=== PATIENT | female | born 1990 | race Caucasian/White ===

== ENCOUNTER 2017-04-11 10:09 | Inpatient (IN) | payer MEDICAID ==
[~2017-04-11] VITALS: Ht 162.6 cm; Wt 66.6 kg
[~2017-04-11 10:09] MED LIST: FERR325C PO; PNV1TABL91 PO
[2017-04-11] MEDS ORDERED: FOLI-49 PO (10:16)
[2017-04-11] MEDS ORDERED: CALC600T11 PO (10:16)
[2017-04-11 10:17] VITALS: BP 111/69; RESP 18; Ht 162.6 cm; Wt 66.6 kg
[2017-04-11] MEDS ORDERED: LACTATED RINGER'S 1,000 ML IV PRN (10:34)
[2017-04-11] MEDS ORDERED: LACTATED RINGER'S 1,000 ML IV SCH (10:34)
[2017-04-11] MEDS ORDERED: CARBOPROST 250 MCG INJ IM PRN (11:00)
[2017-04-11] MEDS ORDERED: IBUPROFEN 600 MG TAB PO PRN (11:00)
[2017-04-11] MEDS ORDERED: BUTORPHANOL 2 MG INJ IV PRN (11:00)
[2017-04-11] MEDS ORDERED: MISOPROSTOL 200 MCG TAB PR PRN (11:00)
[2017-04-11] MEDS ORDERED: OXYTOCIN 30 UNITS/LR 500 ML IV PRN (11:00)
[2017-04-11] MEDS ORDERED: LIDOCAINE 1% (MPF) 30 ML INJ INJ PRN (11:00)
[2017-04-11] MEDS ORDERED: METHYLERGONOVINE 0.2 MG INJ IM PRN (11:00)
[2017-04-11] MEDS ORDERED: OXYTOCIN 30 UNITS/LR 500 ML IV SCH ×2 (11:00→14:51)
[2017-04-11 11:12] LABS: ADD SCAN DIFF NO
[2017-04-11 11:15] LABS: BASOPHILS % 0.2 % (0.0-2.0); EOSINOPHILS # 0.2 10^3/ul (0.0-0.5); EOSINOPHILS % 1.5 % (0.0-7.0); HEMATOCRIT 39.2 % (37.0-47.0); HEMOGLOBIN 13.3 g/dl (12.0-16.0); LYMPHOCYTES # 1.9 10^3/ul (0.8-2.9); LYMPHOCYTES % 18.9 % (15.0-51.0); MEAN CORPUSCULAR HEMOGLOBIN 31.8 pg (29.0-33.0); MEAN CORPUSCULAR HGB CONC 33.9 g/dl (32.0-37.0); MEAN CORPUSCULAR VOLUME 93.8 fl (82.0-101.0); MONOCYTE # 0.8 10^3/ul (0.3-0.9); MONOCYTES % 8.2 % (0.0-11.0); NEUTROPHIL # 7.2 10^3/ul (1.6-7.5); NEUTROPHILS % 70.6 % (39.0-77.0); PLATELET COUNT 248 10^3/UL (140-415); RED BLOOD COUNT 4.18 10^6/ul (4.20-5.40); RED CELL DISTRIBUTION WIDTH 14.9 % (11.5-14.5); WHITE BLOOD COUNT 10.2 10^3/ul (4.8-10.8)
[2017-04-11 11:40] LABS: INR 0.92; PROTIME 12.4 Sec (12.2-14.2)
[2017-04-11 11:41] LABS: PARTIAL THROMBOPLASTIN TIME 25.3 Sec (25.0-35.0)
--- NOTE | 2017-04-11 13:23 | LDN ---
Date/Time of Note Date/Time of Note DATE: 04/11/17 TIME: 13:18 Delivery Summary Normal spontaneous vaginal delivery of a baby boy from op position shoulders delivered without any difficulty rest of the baby's body followed cord clamped after stopped pulsation placenta spontaneous expulsion inspected complete patient sustained small first-degree perineal laceration repaired with 3-0 chromic catgut estimated blood loss 300 cc Weeks of Gestation 37 weeks 2 days Placenta Delivered: Spontaneously Meconium: none Episiotomy: No Perineal laceration: 1 Laceration repair: First-degree perineal laceration repaired with 3-0 chromic catgut Anesthesia type: Local Sponge & Needle done & correct: Yes All needle counts correct: Yes Any foreign bodies felt in the: No Problems: Infant Delivery Information Sex Infant Sex: male Apgars 1 Minute: 9 5 Minute: 9 Suctioning Nose & mouth suctioned at duong: Yes Delee suction performed: No Umbilical Cord Umbilical cord with: 3 Vessels Cord presentations: nuchal cord Cord Blood was obtained: Yes CATRACHITO SOLORZANO MD Apr 11, 2017 13:23
[2017-04-11] MEDS: OXYTOCIN 30 UNITS/LR 500 ML IV SCH ×4 (14:01→18:51)
[2017-04-11 15:00] VITALS: BP 106/59; PULSE 86; RESP 18
[2017-04-11] MEDS ORDERED: OXYCODONE/ASPIRIN (4.88/325) TAB PO PRN ×4 (15:00)
[2017-04-11] MEDS ORDERED: DIBUCAINE 1% 30 GM OINT PR PRN ×2 (15:00)
[2017-04-11] MEDS ORDERED: LANOLIN 7 GM TUBE TOP PRN ×2 (15:00)
[2017-04-11] MEDS ORDERED: WITCH HAZEL/GLYCERIN PAD PR PRN ×2 (15:00)
[2017-04-11] MEDS ORDERED: ONDANSETRON 4 MG INJ IV PRN ×2 (15:00)
[2017-04-11] MEDS ORDERED: BENZOCAINE 20% 56 ML SPRAY TOP PRN ×2 (15:00)
[2017-04-11] MEDS ORDERED: ACETAMINOPHEN 325 MG TAB PO PRN ×2 (15:00)
[2017-04-11] MEDS ORDERED: ACETAMINOPHEN/CODEINE #3 TAB PO PRN ×4 (15:00)
[2017-04-11] MEDS: IBUPROFEN 600 MG TAB PO SCH ×2 (17:48→23:42)
[2017-04-11] MEDS ORDERED: IBUPROFEN 600 MG TAB PO SCH (18:00)
[2017-04-11 19:45] VITALS: BP 99/54; PULSE 66; RESP 18
[2017-04-11] MEDS: SENNA/DOCUSATE NA (8.6MG/50MG) TAB PO SCH (20:48)
[2017-04-11] MEDS ORDERED: SENNA/DOCUSATE NA (8.6MG/50MG) TAB PO SCH (21:00)
[2017-04-12 00:22] VITALS: BP 95/52; PULSE 65; RESP 18
[2017-04-12 04:00] VITALS: BP 90/64; PULSE 76; RESP 18
[2017-04-12] MEDS: IBUPROFEN 600 MG TAB PO SCH ×4 (05:32→23:46)
[2017-04-12 07:30] VITALS: BP 96/51; PULSE 74; RESP 16
[2017-04-12 07:45] LABS: ADD SCAN DIFF NO
[2017-04-12 07:52] LABS: BASOPHILS % 0.2 % (0.0-2.0); EOSINOPHILS # 0.2 10^3/ul (0.0-0.5); EOSINOPHILS % 1.2 % (0.0-7.0); HEMATOCRIT 31.2 % (37.0-47.0); HEMOGLOBIN 10.3 g/dl (12.0-16.0); LYMPHOCYTES # 2.6 10^3/ul (0.8-2.9); LYMPHOCYTES % 19.9 % (15.0-51.0); MEAN CORPUSCULAR HEMOGLOBIN 31.3 pg (29.0-33.0); MEAN CORPUSCULAR VOLUME 94.8 fl (82.0-101.0); MEAN PLATELET VOLUME 10.2 fl (7.4-10.4); MONOCYTES % 7.9 % (0.0-11.0); NEUTROPHILS % 70.2 % (39.0-77.0); PLATELET COUNT 208 10^3/UL (140-415); RED BLOOD COUNT 3.29 10^6/ul (4.20-5.40); WHITE BLOOD COUNT 12.8 10^3/ul (4.8-10.8)
[2017-04-12] MEDS: SENNA/DOCUSATE NA (8.6MG/50MG) TAB PO SCH ×2 (08:28→21:16)
--- NOTE | 2017-04-12 12:19 | PN ---
Date/Time of Note Date/Time of Note DATE: 04/12/17 TIME: 12:18 OB Subjective Subjective Subjective Post normal vaginal delivery day 1 Afebrile vital signs stable abdomen soft uterus firm lochia normal extremity ambulation encouraged Laboratory Tests Test 04/12/17 07:15 White Blood Count 12.810^3/ul Red Blood Count 3.2910^6/ul Hemoglobin 10.3g/dl Hematocrit 31.2% Mean Corpuscular Volume 94.8fl Mean Corpuscular Hemoglobin 31.3pg Mean Corpuscular Hemoglobin Concent 33.0g/dl Red Cell Distribution Width 15.0% Platelet Count 06789^3/UL Mean Platelet Volume 10.2fl Neutrophils % 70.2% Lymphocytes % 19.9% Monocytes % 7.9% Eosinophils % 1.2% Basophils % 0.2% Nucleated Red Blood Cells % 0.0/100WBC Neutrophils # 9.010^3/ul Lymphocytes # 2.610^3/ul Monocytes # 1.010^3/ul Eosinophils # 0.210^3/ul Basophils # 0.010^3/ul Nucleated Red Blood Cells # 0.010^3/ul Current Medications Medications (Trade) Dose Ordered Sig/Eloy Route PRN Reason Start Time Stop Time Status Last Admin Dose Admin Lactated Ringer's (Lr) 1,000 ml @ 125 mls/hr Q8H IV 04/11/17 10:34 04/11/17 15:18 DC Butorphanol Tartrate (Stadol) 2 mg Q2H PRN IV PAIN 04/11/17 11:00 04/11/17 15:07 DC Lidocaine 30 ml 30 ml ONCE PRN INJ EPISIOTOMY/TEARING 04/11/17 11:00 04/11/17 15:07 DC 04/11/17 14:01 Oxytocin/Lactated Ringer's 500 ml @ 125 mls/hr ONCE -MAY REPEAT X1 IV 04/11/17 11:00 04/11/17 15:07 DC Oxytocin/Lactated Ringer's 500 ml @ 125 mls/hr ONCE IV 04/11/17 11:00 04/11/17 15:18 DC 04/11/17 14:03 Ibuprofen 600 mg 600 mg ONCE PRN PO Mild Pain (Pain Score 1-3) 04/11/17 11:00 6/26/17 15:18 DC Lactated Ringer's 1,000 ml @ 2,000 mls/hr Q30M PRN IV PRE-EPIDURAL BOLUS 04/11/17 10:34 04/11/17 15:07 DC Oxytocin/Lactated Ringer's 500 ml @ 0 mls/hr ONCE PRN IV For Hemorrhage Management 04/11/17 11:00 04/11/17 15:08 DC Methylergonovine Maleate (Methergine) 0.2 mg ONCE PRN IM VAGINAL BLEEDING 04/11/17 11:00 Carboprost Tromethamine (Hemabate) 250 mcg ONCE PRN IM VAGINAL BLEEDING 04/11/17 11:00 Misoprostol 1000 mcg 1,000 mcg ONCE PRN HI VAGINAL BLEEDING 04/11/17 11:00 Oxytocin/Lactated Ringer's 500 ml @ 125 mls/hr Q4H IV 04/11/17 14:51 04/11/17 22:50 Cancel Ibuprofen (Motrin) 600 mg Q6 PO 04/11/17 18:00 Cancel Acetaminophen (Tylenol Tab) 650 mg Q4H PRN PO PAIN LEVEL 1-5 04/11/17 15:00 Acetaminophen/ Codeine Phosphate (Tylenol No.3) 1 tab Q4H PRN PO PAIN LEVEL 1-5 04/11/17 15:00 Cancel Acetaminophen/ Codeine Phosphate (Tylenol No.3) 2 tab Q4H PRN PO PAIN LEVEL 6-10 04/11/17 15:00 Cancel Oxycodone/Aspirin (Percodan) 1 tab Q3H PRN PO PAIN LEVEL 1-5 04/11/17 15:00 Cancel Oxycodone/Aspirin (Percodan) 2 tab Q3H PRN PO PAIN LEVEL 6-10 04/11/17 15:00 Cancel Ondansetron HCl (Zofran Inj) 4 mg Q6H PRN IV NAUSEA AND/OR VOMITING 04/11/17 15:00 Cancel Senna/Docusate Sodium (Senokot-S) 1 tab BID PO 04/11/17 21:00 Cancel Witch Danae/ Glycerin (Tucks Pads) 1 pad BEDSIDE MEDICATION PRN HI HEMORRHOID/EPISIOTMY PAIN 04/11/17 15:00 Cancel Benzocaine (Dermoplast [place]) 1 spray BEDSIDE MEDICATION PRN TOP HEMORRHOID/EPISIOTMY PAIN 04/11/17 15:00 Cancel Dibucaine (Nupercainal) 1 applic BEDSIDE MEDICATION PRN HI HEMORRHOID/EPISIOTMY PAIN 04/11/17 15:00 Cancel Lanolin (Bkv-C-Tunidd) 1 applic BEDSIDE MEDICATION PRN TOP BEDSIDE FOR [place] TO NIPPLES 04/11/17 15:00 Cancel Measles/Mumps/ Rubella Vaccine Live 0.5 ml 0.5 ml ONCE ONCE SC* 04/13/17 09:00 04/13/17 09:01 Cancel Oxytocin/Lactated Ringer's 500 ml @ 125 mls/hr Q4H IV 04/11/17 14:51 04/11/17 22:50 DC Ibuprofen (Motrin) 600 mg Q6 PO 04/11/17 18:00 04/12/17 12:09 Acetaminophen (Tylenol Tab) 650 mg Q4H PRN PO PAIN LEVEL 1-5 04/11/17 15:00 04/11/17 15:18 DC Acetaminophen/ Codeine Phosphate (Tylenol No.3) 1 tab Q4H PRN PO PAIN LEVEL 1-5 04/11/17 15:00 Acetaminophen/ Codeine Phosphate (Tylenol No.3) 2 tab Q4H PRN PO PAIN LEVEL 6-10 04/11/17 15:00 04/11/17 15:27 Oxycodone/Aspirin (Percodan) 1 tab Q3H PRN PO PAIN LEVEL 1-5 04/11/17 15:00 Oxycodone/Aspirin (Percodan) 2 tab Q3H PRN PO PAIN LEVEL 6-10 04/11/17 15:00 Ondansetron HCl (Zofran Inj) 4 mg Q6H PRN IV NAUSEA AND/OR VOMITING 04/11/17 15:00 Senna/Docusate Sodium (Senokot-S) 1 tab BID PO 04/11/17 21:00 04/12/17 08:28 Witch [place]/ Glycerin (Tucks Pads) 1 pad BEDSIDE MEDICATION PRN HI HEMORRHOID/EPISIOTMY PAIN 04/11/17 15:00 04/11/17 15:27 Benzocaine (Dermoplast [place]) 1 spray BEDSIDE MEDICATION PRN TOP HEMORRHOID/EPISIOTMY PAIN 04/11/17 15:00 04/11/17 15:27 Dibucaine (Nupercainal) 1 applic BEDSIDE MEDICATION PRN HI HEMORRHOID/EPISIOTMY PAIN 04/11/17 15:00 Lanolin (Rxc-X-Jesldo) 1 applic BEDSIDE MEDICATION PRN TOP BEDSIDE FOR [place] TO NIPPLES 04/11/17 15:00 04/11/17 15:27 Measles/Mumps/ Rubella Vaccine Live (Mmr Ii Vaccine) 0.5 ml ONCE ONCE SC* 04/13/17 09:00 04/13/17 09:00 CATRACHITO CARLISLE MD Apr 12, 2017 12:18
[2017-04-12 16:00] VITALS: BP 89/52; PULSE 71; RESP 16
[2017-04-12] MEDS ORDERED: DIPHTH/TET/ACEL PERTUSS (ADULT) 0.5 ML VIAL IM* ONE (19:00)
[2017-04-12 20:00] VITALS: BP 107/55; PULSE 71; RESP 18
[2017-04-13 03:59] VITALS: BP 94/47; PULSE 74; RESP 18
[2017-04-13] MEDS: IBUPROFEN 600 MG TAB PO SCH ×2 (05:52→12:04)
--- NOTE | 2017-04-13 08:45 | DS ---
Date/Time of Note Date/Time of Note DATE: 04/13/17 TIME: 08:42 Discharge Summary Admission/Discharge Info Admit Date/Time Apr 11, 2017 at 10:44 Discharge Date/Time Day 2 post normal vaginal delivery Afebrile vital signs are stable abdomen soft uterus firm lochia normal extremity appointment for check in 2 weeks Discharge Diagnosis Day 2 post normal vaginal delivery Patient Condition: Good Procedures Normal spontaneous vaginal delivery Hx of Present Illness Term in labor Hospital Course Satisfactory uneventful Home Meds Reported Medications Calcium Carbonate* (Calcium Carbonate*) 600 MG Ca Tab, 600 MG PO DAILY, TAB 04/11/17 Folic Acid* (Folic Acid*) 1 Mg Tablet, 1 MG PO DAILY, TAB 04/11/17 Ferrous Sulfate (Iron) 325 Mg Capsr, 325 MG PO 10/18/15 Pnv No.122/Iron/Folic Acid ( Multi Tablet) 1 Each Tablet, 1 EACH PO, TAB 10/18/15 Follow-up Plan Appointment clinic in 2 weeks for check Primary Care Provider Care Physician No Primary Time spent on discharge: < 30 minutes CATRACHITO SOLORZANO MD Apr 13, 2017 08:45
--- NOTE | 2017-04-13 08:46 | PD.PPDC ---
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
[2017-04-13] MEDS ORDERED: MEASLES,MUMPS,RUBELLA VACCINE INJ SC* ONE ×2 (09:00)
[2017-04-13] MEDS: SENNA/DOCUSATE NA (8.6MG/50MG) TAB PO SCH (09:35)
== END 2017-04-13 16:30 | disposition home or self-care (01) | DRG 775 ==
LOC: L-D 10:09 → OBT 10:09 → L-D 10:34 → OBT 10:40 → L-D 10:44 → PP1 14:42
PROVIDERS: ADMIT Obstetrics & Gynecology; ATTEND Obstetrics & Gynecology
PROC: 10E0XZZ Delivery of Products of Conception, External Approach (ICD-10-PCS; principal; 2017-04-11)
PROC: 0HQ9XZZ Repair Perineum Skin, External Approach (ICD-10-PCS; 2017-04-11)
DX: O69.81X0 Labor and delivery complicated by cord around neck, without compression, not applicable or unspecified (principal); O70.0 First degree perineal laceration during delivery; Z3A.37 37 weeks gestation of pregnancy; Z37.0 Single live birth
CPT/HCPCS: 85025; 85610; 85730; 86592; 86900; 86901; 87340; 90715; 99464; G0463; J2590; J7120

== ENCOUNTER 2018-06-09 15:41 | Emergency (ER) | END 2018-06-09 19:05 | disposition home or self-care (01) ==

== ENCOUNTER 2018-07-21 13:36 | Outpatient (CLI) | END 2018-07-21 16:23 | disposition home or self-care (01) ==

== ENCOUNTER 2018-08-14 18:27 | Inpatient (IN) | END 2018-08-17 13:05 | disposition home or self-care (01) | DRG 807 ==

== ENCOUNTER 2019-01-22 19:30 | Emergency (ER) | payer MEDICAID ==
[~2019-01-22] VITALS: Ht 157.5 cm; Wt 63.5 kg
[~2019-01-22 19:30] MED LIST changes: +CALC600T24 PO; +FOLI-49 PO
[2019-01-22 19:38] VITALS: Ht 157.5 cm; Wt 63.5 kg
[2019-01-22] MEDS ORDERED: ONDANSETRON (ODT) 4 MG TAB ODT STA (21:43)
[2019-01-22] MEDS ORDERED: KETOROLAC 30 MG INJ IM STA (21:43)
--- NOTE | 2019-01-22 21:59 | ERD ---
ER Documentation Chief Complaint Chief Complaint RANGEL x3 days + nausea. OTC meds not working. HPI Patient is a 28-year-old female who presents the ER for concerns of a headache which started at 2 PM. Patient describes the pain to be throughout her head and bandlike. Patient states she did take Tylenol which did not help with her headache. Patient denies any photophobia, phonophobia. Patient admits to nausea and 2 episodes of nonbloody, nonbilious vomiting. Patient denies any fevers or chills. Patient denies any head injuries. Patient denies worse headache of life. Patient denies any neck pain or neck stiffness. Patient denies chest pain or shortness of breath. Patient denies any abdominal pain. Of note patient is currently breast-feeding. Patient states she did start taking oral control 2 days ago. ROS All systems reviewed and are negative except as per history of present illness. Medications Home Meds Reported Medications Calcium Carbonate* (Calcium Carbonate*) 600 MG Ca Tab, 600 MG PO DAILY, TAB 04/11/17 Folic Acid* (Folic Acid*) 1 Mg Tablet, 1 MG PO DAILY, TAB 04/11/17 Ferrous Sulfate (Iron) 325 Mg Capsr, 325 MG PO 10/18/15 Pnv No.122/Iron/Folic Acid ( Multi Tablet) 1 Each Tablet, 1 EACH PO, TAB 10/18/15 Allergies Allergies: Coded Allergies: No Known Allergy (Unverified , 01/22/19) PMhx/Soc Medical and Surgical Hx: pt denies Medical Hx, pt denies Surgical Hx Hx Alcohol Use: No Hx Substance Use: No Hx Tobacco Use: No Smoking Status: Never smoker FmHx Family History: No diabetes Physical Exam Vitals Vital Signs Date Temp Pulse Resp B/P (MAP) Pulse Ox O2 O2 Flow FiO2 Time Delivery Rate 01/22/19 97.9 91 20 119/70 99 19:38 (86) Physical Exam GENERAL: Well-developed, well-nourished male. Appears in no acute distress. Speaking in full sentences per HEAD: Normocephalic, atraumatic. EYES: Pupils are equally reactive bilaterally. EOMs grossly intact. No conjunctival erythema. ENT: Moist mucous membranes. No uvula deviation. No kissing tonsils. NECK: Supple. No meningismus. Normal range of motion of the neck. LUNG: Clear to auscultation bilaterally. No rhonchi, wheezing, rales or coarse breath sounds. HEART: Regular rate and rhythm. No murmurs, rubs or gallops. EXTREMITIES: Equal pulses bilaterally. No peripheral clubbing, cyanosis or edema. No unilateral leg swelling. NEUROLOGIC: Alert and oriented x3, cooperative. Mood and affect appropriate to situation. Cranial nerves II through XII are grossly intact. Normal speech. Motor exam: 5/5 strength in upper and lower extremities. Sensory exam: Sensation intact to light touch on all four extremities. Cerebellar function exam: Rapid alternating movements intact. No dysmetria on [id number] and sldl-ct-[id number] test. Steady gait. No pronator drift. Equal wireless operator strength bilaterally SKIN: Normal color. Warm and dry. No rashes or lesions. Results 24 hrs Laboratory Tests Test 01/22/19 21:50 01/22/19 21:51 Bedside Urine pH (LAB) 7.0 Bedside Urine Protein (LAB) Negative Bedside Urine Glucose (UA) Negative Bedside Urine Ketones (LAB) Negative Bedside Urine Blood Negative Bedside Urine Nitrite (LAB) Negative Bedside Urine Leukocyte Esterase (L Negative POC Beta HCG, Qualitative NEGATIVE Current Medications Medications Dose Sig/Eloy Start Time Status Last (Trade) Ordered Route PRN Stop Time Admin Dose Reason Admin Ketorolac 30 mg ONCE STAT 01/22/19 DC 01/22/19 Tromethamine IM 21:43 01/22/19 21:56 (Toradol) 21:44 Ondansetron 4 mg ONCE STAT 01/22/19 DC 01/22/19 HCl (Zofran ODT 21:43 01/22/19 21:56 Odt) 21:44 Procedures/MDM MEDICAL DECISION MAKING: This is a 28-year-old female presents the ER for concerns of headache, nausea and vomiting which started earlier today. Of note patient did recently start taking OCPs. Vital signs were reviewed. Patient was afebrile. Patient is not hypoxic. Patient denied headache to be bandlike throughout her head. Patient denied worse headache of life. Patient denied any fevers, neck stiffness, jaw claudication, visual changes or LOC. Full neurological exam was normal. Urine test was negative. UA was negative. Patient was given Toradol IM here. Zofran was given. No additional episodes of vomiting noted throughout the ED course. At this time, patient's presentation is most consistent with a tension headache versus migraine headache. Patient will be given ibuprofen and Zofran for home. Low suspicion for CVA, TIA, intracranial hemorrhage, meningitis, encephalitis, CO poisoning, temporal arteritis, benign intracranial hypertension, intracranial mass, glaucoma, preeclampsia, sinusitis,cluster headache. Patient was nontoxic, [id number] prior to discharge. PRESCRIPTIONS: Ibuprofen, Zofran DISCHARGE: At this time, patient is stable for discharge and outpatient management. I have encouraged the patient to hydrate well. I have instructed the patient to follow- up with his/her primary care physician in 1-2 days. If symptoms persist, patient may need to see a specialist for further examinations and testing. I have instructed the patient to promptly return to the ER at any time for any new or worsening symptoms including increased increased pain, fever, nausea, vomiting, numbness, neck stiffness, visual changes, weakness or LOC. The patient and/or family expressed understanding of and agreement with this plan. All questions were answered. Home care instructions were provided. Disclaimer: Inadvertent spelling and grammatical errors are likely due to EHR/dictation software use and do not reflect on the overall quality of patient care. Also, please note that the electronic time recorded on this note does not necessarily reflect the actual time of the patient encounter. Departure Diagnosis: Primary Impression: Headache Headache type: unspecified Headache chronicity pattern: unspecified pattern Intractability: not intractable Qualified Codes: R51 - Headache Additional Impression: Nausea Condition: Fair Patient Instructions: Self-Care for Headaches, Nausea Referrals: [facility] YOU HAVE RECEIVED A MEDICAL SCREENING EXAM AND THE RESULTS INDICATE THAT YOU DO NOT HAVE A CONDITION THAT REQUIRES URGENT TREATMENT IN THE EMERGENCY DEPARTMENT. FURTHER EVALUATION AND TREATMENT OF YOUR CONDITION CAN WAIT UNTIL YOU ARE SEEN IN YOUR DOCTORS OFFICE WITHIN THE NEXT 1-2 DAYS. IT IS YOUR RESPONSIBILITY TO MAKE AN APPOINTMENT FOR FOLOW-UP CARE. IF YOU HAVE A PRIMARY DOCTOR --you should call your primary doctor and schedule an appointment IF YOU DO NOT HAVE A PRIMARY DOCTOR YOU CAN CALL OUR PHYSICIAN REFERRAL HOTLINE AT IF YOU CAN NOT AFFORD TO SEE A PHYSICIAN YOU CAN CHOSE FROM THE FOLLOWING [facility] [address] [facility]. [facility] [address] [facility]. [facility] [address] [facility]. [facility] [address] [facility]. [facility] [address] [facility]. [facility]. [address] [facility]. [facility] YOU HAVE RECEIVED A MEDICAL SCREENING EXAM AND THE RESULTS INDICATE THAT YOU DO NOT HAVE A CONDITION THAT REQUIRES URGENT TREATMENT IN THE EMERGENCY DEPARTMENT. FURTHER EVALUATION AND TREATMENT OF YOUR CONDITION CAN WAIT UNTIL YOU ARE SEEN IN YOUR DOCTORS OFFICE WITHIN THE NEXT 1-2 DAYS. IT IS YOUR RESPONSIBILITY TO MAKE AN APPOINTMENT FOR FOLOW-UP CARE. IF YOU HAVE A PRIMARY DOCTOR --you should call your primary doctor and schedule and appointment IF YOU DO NOT HAVE A PRIMARY DOCTOR YOU CAN CALL OUR PHYSICIAN REFERRAL HOTLINE AT . IF YOU CAN NOT AFFORD TO SEE A PHYSICIAN YOU CAN CHOSE FROM THE FOLLOWING [facility] INSTITUTIONS: [facility] [address] [place] [address] [facility] [address] [place], [place] [id number] [place] [address] [address] [place] [address] Additional Instructions: Llame al doctor MAANA y susan sheron PERFECTO PARA DENTRO DE 1-2 [place].Dgale a la s ecretaria que nosotros le instruimos hacer esta perfecto.Avise o llame si martinez condicin se empeora antes de la perfecto. Regresa aqui si peor o no mejor. BRISA GARCIA PA-C Jan 22, 2019 21:59
[2019-01-22] MEDS ORDERED: IBUP-1542 PO (22:00)
[2019-01-22] MEDS ORDERED: ONDA4TAB14 PO (22:01)
[2019-01-22 22:13] VITALS: BP 119/78; PULSE 84; RESP 18
== END 2019-01-22 22:14 | disposition home or self-care (01) ==
LOC: FTE 19:30
DX: R51 Headache (principal); R11.0 Nausea
CPT/HCPCS: 81003; 81025; 96372; J1885; Z7502; Z7610

== ENCOUNTER 2019-03-16 03:40 | Emergency (ER) | payer MEDICAID ==
[~2019-03-16] VITALS: Ht 162.6 cm; Wt 64.0 kg
[~2019-03-16 03:40] MED LIST changes: +IBUP-1542 PO; +ONDA4TAB14 PO
[2019-03-16 03:46] VITALS: BP 107/59; PULSE 83; RESP 16; Ht 162.6 cm; Wt 64.0 kg
--- NOTE | 2019-03-16 04:33 | ERD ---
ER Documentation Chief Complaint Chief Complaint throat pain x 3 days HPI This is a 28-year-old female who presents to emerge C department with complaints of throat pain for about 3 days. Stated that she went to clinic yesterday and was prescribed. Robafen, Claritin, Flonase. Complains of right ear pain. LMP: Stated that she is on it. G4, . Denies headache, head injury, loss of consciousness, dizziness, neck pain, neck stiffness, throat pain, difficulty swallowing, difficulty breathing lying flat, shoulder pain, chest pain, back pain, abdominal pain, nausea, vomiting, constipation, diarrhea, urinary symptoms, or possibility being , loss of bowel and bladder control, trauma, injury, falls, difficulty walking due to pain, numbness or tingling sensation, calf pain, recent travel, recent major surgery in the last 3 weeks, calf pain, recent long travel, recent exposure to any illness, recent antibiotic use in the last 3 months, fever, chills, seizures. Past medical history: Surgical history: Social: Denies smoking, use of alcoholic beverages, use of illegal drugs. ROS All systems reviewed and are negative except as per history of present illness. Medications Home Meds Active Scripts Neomycin/Polymyxin/Hydrocort* (Cortisporin* Otic) 10 Ml Susp, 4 DROP RIGHT EAR QID for 7 Days, EA Prov:CEDRIC RAMSEY 03/16/19 Amoxicillin* (Amoxicillin*) 500 Mg Cap, 500 MG PO TID for 7 Days, CAP Prov:CEDRIC RAMSEY F 03/16/19 Ibuprofen* (Motrin*) 600 Mg Tab, 600 MG PO Q6H PRN for PAIN AND OR ELEVATED TEMP, #30 TAB Prov:CEDRIC RAMSEY 03/16/19 Ondansetron (Ondansetron Odt) 4 Mg Tab.rapdis, 4 MG PO Q6H PRN for NAUSEA AND/OR VOMITING, #10 TAB Prov:BRISA GARCIA PA-C 01/22/19 Ibuprofen* (Motrin*) 600 Mg Tab, 600 MG PO Q6, #30 TAB Prov:BRISA GARCIA PA-C 01/22/19 Reported Medications Calcium Carbonate* (Calcium Carbonate*) 600 MG Ca Tab, 600 MG PO DAILY, TAB 04/11/17 Folic Acid* (Folic Acid*) 1 Mg Tablet, 1 MG PO DAILY, TAB 04/11/17 Ferrous Sulfate (Iron) 325 Mg Capsr, 325 MG PO 10/18/15 Pnv No.122/Iron/Folic Acid ( Multi Tablet) 1 Each Tablet, 1 EACH PO, TAB 10/18/15 Allergies Allergies: Coded Allergies: No Known Allergy (Unverified , 01/22/19) PMhx/Soc Medical and Surgical Hx: pt denies Medical Hx, pt denies Surgical Hx History of Surgery: No Anesthesia Reaction: No Hx Neurological Disorder: No Hx Respiratory Disorders: No Hx Cardiac Disorders: No Hx Psychiatric Problems: No Hx Miscellaneous Medical Probl: No Hx Alcohol Use: No Hx Substance Use: No Hx Tobacco Use: No Smoking Status: Never smoker Physical Exam Vitals Physical Exam Const: No acute distress Head: Atraumatic Eyes: Normal Conjunctiva ENT: Normal External Ears, Nose and Mouth. Right ear: External canal has erythema. TM is mildly erythematous. No bleeding. No discharge. No hearing loss. No foreign bodies seen. No mastoid tenderness. Left ear: TM is not erythematous. No bleeding. No discharge. No hearing loss. No foreign body seen. No mastoid tenderness. Throat: Uvula is in midline and nondisplaced. Tonsils are +2 bilaterally with redness but no exudates. Tolerating secretions. Patent airway. Speaks full and clear sentences. Patent airway. Neck: Full range of motion. No meningismus. No nuchal rigidity. No signs of meningeal irritation. Resp: Clear to auscultation bilaterally Cardio: Regular rate and rhythm, no murmurs Abd: Soft, non tender, non distended. Normal bowel sounds Skin: No petechiae or rashes Back: No midline or flank tenderness Ext: No cyanosis, or edema Neur: Awake and alert. No neurological deficits. Psych: Normal Mood and Affect Procedures/MDM Diagnostic tests: Clinical exam. Treatment: Not applicable. Re-evaluation: Not applicable. Differential diagnosis I have low suspicion for mastoiditis, TM rupture, meningitis, peritonsillar abscess, sepsis. Final diagnosis: Otitis externa. Tonsillitis. Prescription: Motrin. Amoxicillin. Cortisporin otic drops. Follow-up with PCP in the next 24-48 hours. Come back here in the emergency department for any new symptoms or any worsening symptoms. All questions and concerns were answered. Patient and family members verbalized understanding and agreed with plan of care. Hemodynamically stable on discharge. Departure Diagnosis: Primary Impression: Tonsillitis Additional Impression: Otitis externa Condition: Stable Additional Instructions: Follow-up with PCP in the next 24-48 hours. Come back here in the emergency department for any new symptoms or any worsening symptoms. CEDRIC RAMSEY March 16, 2019 04:33
[2019-03-16] MEDS ORDERED: IBUP-1542 PO (04:46)
[2019-03-16] MEDS ORDERED: AMOX500C2 PO (04:46)
[2019-03-16] MEDS ORDERED: NPH10OT RIGHT EAR (04:47)
== END 2019-03-16 04:54 | disposition home or self-care (01) ==
LOC: FTE 03:40
DX: J03.90 Acute tonsillitis, unspecified (principal); H60.91 Unspecified otitis externa, right ear
CPT/HCPCS: 99283